=== PATIENT | female | born 1995 | race Caucasian/White ===

== ENCOUNTER 2016-09-05 09:16 | Outpatient (CLI) ==
[2016-09-05 09:29] LABS: BASOPHILS # (AUTO) 0.1 K/uL (0-0.2); BASOPHILS % (AUTO) 0.6 % (0.0-3.0); EOSINOPHILS # (AUTO) 0.1 K/ul (0.0-0.7); EOSINOPHILS % (AUTO) 0.6 % (0.0-7.0); HEMATOCRIT 39.3 % (37.0-47.0); HEMOGLOBIN 13.4 g/dl (12.0-16.0); IMMATURE GRANULOCYTE % (AUTO) 0.2 % (0.0-5.0); LYMPHOCYTES # (AUTO) 2.1 K/uL (0.60-3.4); LYMPHOCYTES % (AUTO) 24.5 (10.0-50.0); MEAN CORPUSCULAR HEMOGLOBIN 29.4 pg (27.0-31.0); MEAN CORPUSCULAR HGB CONC 34.1 (31.8-35.4); MEAN CORPUSCULAR VOLUME 86.2 fl (81.0-99.0); MONOCYTES # (AUTO) 0.5 K/uL (0.4-2.0); MONOCYTES % (AUTO) 6.4 (0-10); NEUTROPHILS # (AUTO) 5.7 K/ul (2.0-6.9); NEUTROPHILS % (AUTO) 67.7; PLATELET COUNT 269 10^3/uL (140-440); RED BLOOD COUNT 4.56 10^6/ul (4.20-5.40)
[2016-09-05 09:31] LABS: BILIRUBIN,URINE Negative (NEGATIVE); KETONES,URINE 3+ (NEGATIVE); LEUKOCYTE ESTERASE ,URINE 1+ (NEGATIVE); NITRITE,URINE Negative (NEGATIVE); PROTEIN,URINE Negative (NEGATIVE); URINE, BLOOD Trace-intact (NEGATIVE)
[2016-09-05 09:40] LABS: ADD URINE MICROSCOPIC YES
[2016-09-05 09:41] LABS: COCAIN SCREEN,URINE NEGATIVE (NEGATIVE)
[2016-09-05 09:45] LABS: SERUM PREGNANCY INTERNAL QC INTERNAL QC VALID
[2016-09-05 10:12] LABS: ALBUMIN 4.1 g/dL (3.7-5.6); ALBUMIN/GLOBULIN RATIO 1.24; ANION GAP 12.9; BILIRUBIN,TOTAL 0.45 mg/dL (0.60-1.40); BUN/CREATININE RATIO 9.37; CALCIUM 9.4 mg/dL (8.2-10.2); CHOL/HDL RATIO 3.2 (4.5-5.5); CREATININE 0.64 mg/dL (0.60-1.30); POTASSIUM 3.9 mmol/L (3.5-5.10); TOTAL PROTEIN 7.4 g/dL (6.4-8.2)
== END 2016-09-05 09:17 | disposition home or self-care (01) ==
LOC: LAB 09:16
PROVIDERS: ATTEND Family Medicine
DX: Z00.00 Encounter for general adult medical examination without abnormal findings (principal); E66.3 Overweight; N91.2 Amenorrhea, unspecified
CPT/HCPCS: 36415; 80053; 80061; 80306; 81001; 84439; 84443; 84703; 85025

== ENCOUNTER 2016-09-19 10:12 | Outpatient (CLI) ==
[2016-09-19 10:31] LABS: BILIRUBIN,URINE Negative (NEGATIVE); KETONES,URINE Negative (NEGATIVE); LEUKOCYTE ESTERASE ,URINE 1+ (NEGATIVE); NITRITE,URINE Negative (NEGATIVE); PH,URINE 7.5 (5-9); PROTEIN,URINE Negative (NEGATIVE); URINE, BLOOD Negative (NEGATIVE)
[2016-09-19 10:32] LABS: ADD URINE MICROSCOPIC YES
[2016-09-19 10:35] LABS: BACTERIA,URINE TRACE (NOT PRESENT)
[2016-09-19 10:46] LABS: ALBUMIN 3.9 g/dL (3.7-5.6); BILIRUBIN,DIRECT 0.18 mg/dL (0.00-0.30); BILIRUBIN,TOTAL 0.4 mg/dL (0.60-1.40); TOTAL PROTEIN 6.4 g/dL (6.4-8.2)
== END 2016-09-19 10:13 | disposition home or self-care (01) ==
LOC: LAB 10:12
PROVIDERS: ATTEND Family Medicine
DX: N39.0 Urinary tract infection, site not specified (principal); R74.0 Nonspecific elevation of levels of transaminase and lactic acid dehydrogenase [LDH]; E66.9 Obesity, unspecified; I49.9 Cardiac arrhythmia, unspecified
CPT/HCPCS: 36415; 80074; 80076; 81001; 87086; 93005; 93010